=== PATIENT | female | born 1980 | race Caucasian/White ===

== ENCOUNTER 2021-11-26 11:40 | Outpatient (CLI) | payer OTHER, SELFPAY ==
[2021-11-26 20:37] LABS: Chlamydia DNA Amplified* NOT DETECTED (No Detected); GC DNA Amplified* NOT DETECTED (No Detected)
[2021-11-26 21:47] LABS: Hepatitis C Virus Antibody* Negative (Negative)
[2021-11-27 15:11] LABS: HIV 1/2/P24 Combo Screen* Negative (Negative)
== END 2021-11-26 11:41 | disposition home or self-care (01) ==
PROVIDERS: PCP Family Medicine; Visit Provider Nurse Practitioner Family
DX: N89.8 Other specified noninflammatory disorders of vagina (principal); Z11.3 Encounter for screening for infections with a predominantly sexual mode of transmission; Z12.4 Encounter for screening for malignant neoplasm of cervix
CPT/HCPCS: 86703; 86803; 87491; 87591; 87624; 88175

== ENCOUNTER 2022-12-30 09:41 | Outpatient (CLI) | payer MEDICAID, SELFPAY | END 2022-12-30 09:42 | disposition home or self-care (01) | PROVIDERS: PCP Nurse Practitioner Family; Visit Provider Nurse Practitioner Family | DX: I10 Essential (primary) hypertension (principal); E66.9 Obesity, unspecified; Z13.6 Encounter for screening for cardiovascular disorders | CPT/HCPCS: 80053; 80061; 84443 ==

== ENCOUNTER 2023-05-17 08:51 | Outpatient (CLI) | payer MEDICAID, SELFPAY ==
--- OUTSIDE RECORDS SUMMARY | 2023-05-17 09:00 | XMS_ITS | Encounter Summary ---
Author Name Unknown Organization [place] Address [address] [facility] [place] [address] Care Team Providers Care Consumer Loan Officer Name Role Phone Priscilla Bentley MD Primary Care Provider [phone] Ref-Primary, Physician Primary Care Provider Annamarie Starks PA-C Unavailable Annamarie Starks PA-C Unavailable Priscilla Bentley MD Unavailable Reason for Visit * Reason Onset Date Comments Depression 07/08/2009 phq9 done Encounter Details Date Type Department Care Team (Late st Contact Info) Description 07/08/2009 MyC Medical Advice [address] [phone] Alejandra Bains Depression (phq9 done) Social History Tobacco Use Types Packs/Day Years Used Date Smoking Tobacco: Never Alcohol Use Standard Drinks/Week Comments Yes 0 (1 standard drink = 0.6 oz pur e alcohol) very little Sex and Gender Information Value Date Recorded Sex Assigned at Not on file Gender Identity Not on file Sexual Orientation Not on file documented as of this encounter Miscellaneous Notes * Telephone Encounter - NevilleOlivera Ray - 07/08/2009 8:57 PM CDT Call to patient : [phone] (home) Line busy. Need to explore her phq9 answer to #9 (hurting self or suicidal). Refer to Lightbox message. PHQ-9 (scale: 0 to 3) 07/08/2009 No Interest in doing things 1 Feeling depressed 1 Trouble sleeping 3 Tired / No energy 2 No appetite or over-eating 3 Feeling bad about self 1 Trouble concentrating 1 Moving slow or restless 0 Suicidal thoughts 1 TOTAL SCORE------> 13 Jamila LozadaRN documented in this encounter Plan of Treatment Not on file documented as of this encounter Visit Diagnoses Diagnosis ANXIETY STATE NOS- Primary Anxiety state, unspecified documented in this encounter Care Teams Consumer Loan Officer Relationship Specialty Start Date End Date Priscilla Bentley MD [facility] [place] [address] PCP - General 04/01/03 01/18/18 No Ref-Primary, Physician PCP - General 01/19/18 Annamarie Starks PA-C [address] [place] [phone] PCP - Assigned PCP 12/25/17 06/27/18 Annamarie Starks PA-C [address] [place] [address] [phone] Assigned PCP 12/25/17 08/19/18 Priscilla Bentley MD [address] [place] [address] Assigned PCP 04/23/18 12/22/19 documented as of this encounter
--- OUTSIDE RECORDS SUMMARY | 2023-05-17 09:00 | XMS_ITS | Encounter Summary ---
Author Name Unknown Organization [place] Address [address] [facility] [place] [address] Care Team Providers Care Radioisotope Technologist Name Role Phone Priscilla Bentley MD Primary Care Provider [phone] No Ref-Primary, Physician Primary Care Provider Annamarie Starks PA-C Unavailable Annamarie Starks PA-C Unavailable Priscilla Bentley MD Unavailable Encounter Details Date Type Department Care Team (Late st Contact Info) Description 03/29/[address] [phone] Jose Michel MD [address] [place] [id number] DELIVERY RECORDS Social History Tobacco Use Types Packs/Day Years Used Date Smoking Tobacco: Never Smokeless Tobacco: Never Alcohol Use Standard Drinks/Week Comments No 0 (1 standard drink = 0.6 oz pur e alcohol) Comments Yes Sex and Gender Information Value Date Recorded Sex Assigned at Not on file Gender Identity Not on file Sexual Orientation Not on file documented as of this encounter Plan of Treatment Not on file documented as of this encounter Visit Diagnoses Not on filedocumented in this encounter Care Teams Radioisotope Technologist Relationship Specialty Start Date End Date Priscilla Bentley [place] [address] PCP - General 04/01/03 01/18/18 No Ref-Primary, Physician PCP - General 01/19/18 Annamarie Starks PA-C [address] [place] [address] [phone] PCP - Assigned PCP 12/25/17 06/27/18 Annamarie Starks PA-C [address] [place] [address] [phone] Assigned PCP 12/25/17 08/19/18 Priscilla Bentley MD [facility] [place] [id number] Assigned PCP 04/23/18 12/22/19 documented as of this encounter
--- OUTSIDE RECORDS SUMMARY | 2023-05-17 09:00 | XMS_ITS | Referral Summary ---
Author Name Unknown Organization [place] Address [facility] [place] [address] Care Team Providers Care Supervisor Boiler Repair Name Role Phone No Ref-Primary, Physician Primary Care Provider Allergies Active Allergy Reactions Criticality Noted Date Comments Bactrim 10/12/2007 See 10/12/07 notes Hydrocodone Rash 05/11/2004 pruritus Morphine And Related Nausea and Vomiting 2008 Heart palpitations Penicillins 03/13/2003 Medications Medication Sig Dispensed Refills Start Date End Date Status Loratadine (CLARITIN PO) 0 Active sertraline (ZOLOFT) 100 MG tabletIndications:An xiety state TAKE 2 TABLETS BY MOUTH EVERY DAY 180 tablet 3 12/18/2016 Active cyclobenzaprine (FLEXERIL) 10 MG tabletIndications:Ac jing bilateral low back pain with left-sided sciatica Take 1 tablet (10 mg) by mouth 3 times daily as needed for muscle spasms 30 tablet 1 12/18/2016 Active fluticasone (FLONASE) 50 MCG/ACT sprayIndications:Arsh al sinus congestion [place] 1-2 sprays into both nostrils daily 1 Bottle 0 04/03/2017 Active Active Problems Problem Noted Date Diagnosed Date CARDIOVASCULAR SCREENING; LDL GOAL LESS THAN 160 02/22/2010 Anxiety state 06/13/2006 Overview: Problem list name updated by automated process. Provider to review Insomnia 07/09/2005 Overview: Problem list name updated by automated process. Provider to review Morbid obesity 05/14/2005 Esophageal reflux 10/01/2003 Resolved Problems Problem Noted Date Diagnosed Date Resolved Date iamSPRAIN LUMBAR REGION 10/13/200606/24 Depressive disorder, not elsewhere classified 07/10/1908/29/2009 Encounter for supervision of other normal 08/24/2004 05/14/2005 Overview: Diagnosis updated by automated process. Provider to review and confirm. Immunizations Name Administration Dates Next Due Influenza (H1N1) 05/08/2009 Influenza (IIV3) PF 04/20/2013, 2,02/06/2010, 008,02/16/2007,04/07/2006 Influenza Vaccine >6 months,quad, PF 04/17/2015 TD,PF 7+ (Tenivac) 06/12/2003 TDAP Vaccine (Boostrix) 03/17/2012 Social History Tobacco Use Types Packs/Day Years Used Date Smoking Tobacco: Never Smokeless Tobacco: Never Alcohol Use Standard Drinks/Week Comments No 0 (1 standard drink = 0.6 oz pur e alcohol) PHQ-2 Answer Date Recorded PHQ-2 Score 5 05/03/2018 Sex and Gender Information Value Date Recorded Sex Assigned at Not on file Gender Identity Not on file Sexual Orientation Not on file Last Filed Vital Signs Vital Sign Reading Time Taken Comments Blood Pressure 134/80 04/03/2017 10:45 AM PRODUCT FINISHER Pulse 96 04/03/2017 10:45 AM PRODUCT FINISHER Temperature 36.7 ??C (98 ??F) 04/03/2017 10:45 AM PRODUCT FINISHER Respiratory Rate 18 04/03/2017 10:45 AM PRODUCT FINISHER Oxygen Saturation 97% 04/03/2017 10:45 AM PRODUCT FINISHER Inhaled Oxygen Concentration - - Weight 152 kg (335 lb 3.2 oz) 04/03/2017 10:45 A M PRODUCT FINISHER Height 160 cm (5' 3) 12/18/2016 8:08 AM CDT Body Mass Index 59.38 12/18/2016 8:08 AM CDT Plan of Treatment Not on file Care Teams Supervisor Boiler Repair Relationship Specialty Start Date End Date No Ref-Primary, Physician PCP - General 01/19/18
--- OUTSIDE RECORDS SUMMARY | 2023-05-17 09:00 | XMS_ITS | Encounter Summary ---
Author Name Unknown Organization [place] Address [address] [facility] [place] [address] Care Team Providers Care Retail Service Technician Name Role Phone Priscilla Bentley MD Primary Care Provider [phone] No Ref-Primary, Physician Primary Care Provider Annamarie Starks PA-C Unavailable Annamarie Starks PA-C Unavailable Priscilla Bentley MD Unavailable Encounter Details Date Type Department Care Team (Late st Contact Info) Description 03/27/[address] [phone] Jose Michel MD [address] [place] [id number] INDUCTION ORDERS Social History Tobacco Use Types Packs/Day Years [...] on filedocumented in this encounter Care Teams Retail Service Technician Relationship Specialty Start Date End Date Priscilla Bentley MD [place] [address] PCP - General 04/01/03 01/18/18 No Ref-Primary, Physician PCP - General 01/19/18 Annamarie Starks PA-C [address] [place] [address] [phone] PCP - Assigned PCP 12/25/17 06/27/18 Annamarie Starks PA-C [address] [place] [address] [phone] Assigned PCP 12/25/17 08/19/18 Priscilla Bentley MD [facility] [place] [place] [address] Assigned PCP 04/23/18 12/22/19 documented as of this encounter
--- OUTSIDE RECORDS SUMMARY | 2023-05-17 09:00 | XMS_ITS | Encounter Summary ---
Author Name Unknown Organization [place] Address [address] [place] [address] Care Team Providers Care Product Development Coordinator Name Role Phone Priscilla Bentley MD Primary Care Provider [phone] No Ref-Primary, Physician Primary Care Provider Annamarie Starks PA-C Unavailable Annamarie Starks PA-C Unavailable Priscilla Bentley MD Unavailable Reason for Visit * Reason Onset Date Comments MyChart Communication 06/30/2011 UTI Encounter Details Date Type Department Care Team (Late st Contact Info) Description 06/30/2011 MyC Medical Advice [address] [phone] Priscilla [place] [address] MyChart Communication (UTI) Social History Tobacco Use Types Packs/Day Years Used Date Smoking Tobacco: Never Smokeless Tobacco: Never Alcohol Use Standard Drinks/Week Comments No 0 (1 standard drink = 0.6 oz pur e alcohol) Sex and Gender Information Value Date Recorded Sex Assigned at Not on file Gender Identity Not on file Sexual Orientation Not on file documented as of this encounter Plan of Treatment Not on file documented as of this encounter Visit Diagnoses Not on filedocumented in this encounter Care Teams Product Development Coordinator Relationship Specialty Start Date End Date Priscilla Bentley MD [facility] [place] [id number] PCP - General 04/01/03 01/18/18 No Ref-Primary, Physician PCP - General 01/19/18 Annamarie Starks PA-C [address] [place] [address] [phone] PCP - Assigned PCP 12/25/17 06/27/18 Annamarie Starks PA-C [address] [place] [address] [phone] Assigned PCP 12/25/17 08/19/18 Priscilla Bent[place] [address] Assigned PCP 04/23/18 12/22/19 documented as of this encounter
--- OUTSIDE RECORDS SUMMARY | 2023-05-17 09:00 | XMS_ITS | Clinical Summary ---
Author Name Unknown Organization [place] Address [facility]0 [facility] [place] [address] Care Team Providers Care Subcontract Manager Name Role Phone No Ref-Primary, Physician Primary [...] (FLONASE) 50 MCG/ACT sprayIndications:Arsh al sinus congestion [place] 1-2 sprays into both nostrils daily 1 [...] REGION 10/13/200606/24 Depressive disorder, not elsewhere classified 07/10/19 06 08/29/2009 Encounter for supervision of other normal 08/24/2004 05/14/2005 Overview: Diagnosis updated by automated process. Provider to review and confirm. Immunizations Name Administration Dates Next Due Influenza (H1N1) 05/08/2009 Influenza (IIV3) PF 04/20/2013, 2,02/06/2010, 008,02/16/2007,04/07/2006 Influenza Vaccine >6 months,quad, PF 04/17/2015 TD,PF 7+ (Tenivac) 06/12/2003 TDAP Vaccine (Boostrix) 03/17/2012 Family History Medical History Relation Comments Hypertension Father Lipids Father Obesity Father Breast Cancer Maternal Aunt grandmother's si ster C.A.D. Maternal Grandfather Cancer Maternal Grandfather skin cancer Hypertension Maternal Grandfather C.A.D. Maternal Grandmother Diabetes Maternal Grandmother type 2 Genitourinary Problems Maternal Grandmother live r disease Hypertension Maternal Grandmother Alcohol/Drug Paternal Grandfather Cancer Paternal Grandfather age mi d 70's of throat cancer; smoked and drank Cerebrovascular Disease Paternal Grandfather C.A.D. Paternal Grandmother several CO' s Diabetes Paternal Grandmother C.A.D. Paternal Uncle age 49/Grandfath er's brother of massive CO young Prostate Cancer Paternal Uncle Grandfather's br other Relation Status Comments Father Alive Maternal Aunt Maternal Grandfather Alive Maternal Grandmother Alive Mother Alive Paternal Grandfather Paternal Grandmother Alive Paternal Uncle Social History Tobacco Use Types Packs/Day Years [...] Comments Blood Pressure 134/80 04/03/2017 10:45 AM TAP BUILDER Pulse 96 04/03/2017 10:45 AM TAP BUILDER Temperature 36.7 ??C (98 ??F) 04/03/2017 10:45 AM TAP BUILDER Respiratory Rate 18 04/03/2017 10:45 AM TAP BUILDER Oxygen Saturation 97% 04/03/2017 10:45 AM TAP BUILDER Inhaled Oxygen Concentration - - Weight 152 kg (335 lb 3.2 oz) 04/03/2017 10:45 A M TAP BUILDER Height 160 cm (5' 3) 12/18/2016 8:08 AM CDT Body Mass Index 59.38 12/18/2016 8:08 AM CDT Plan of Treatment Not on file Care Teams Subcontract Manager Relationship Specialty Start Date End Date No Ref-Primary, Physician PCP - General 01/19/18
--- NOTE | 2023-05-17 09:15 | CRLHL7_ITS ---
For Patients: As a result of the Century Cures Act, medical imaging exams and procedure reports are released immediately into your electronic medical record. You may view this report before your referring provider. If you have questions, please contact your health care provider. BILATERAL SCREENING MAMMOGRAM WITH COMPUTER-AIDED DETECTION AND TOMOSYNTHESIS TECHNIQUE: CC and MLO views were obtained. These mammographic images have been obtained using full-field digital technique. These mammographic images were interpreted with the benefit of computer-aided detection. Breast Tomosynthesis was used in this interpretation. COMPARISON FILM: Baseline. FINDINGS: There are scattered areas of fibroglandular density IMPRESSION: There is no radiographic evidence for malignancy. ASSESSMENT: BI-RADS Category 1: Negative RECOMMENDATION: Routine screening mammogram in 1 year. A lay language report of this examination will be provided to the patient. Rojas Davila M.D. Diagnostic Radiologist [email or web address] JOE/jan / be/Dictated by: Rojas Davila MD @ 05/17/2023 11:02:00 AM (Electronically Signed)
== END 2023-05-17 08:52 | disposition home or self-care (01) ==
LOC: MAMMO 08:53
PROVIDERS: PCP Nurse Practitioner Family; Visit Provider Nurse Practitioner Family
DX: Z12.31 Encounter for screening mammogram for malignant neoplasm of breast (principal)
CPT/HCPCS: 77063; 77067

== ENCOUNTER 2024-04-19 09:57 | Outpatient (CLI) | payer MEDICAID, SELFPAY ==
[2024-04-19 14:12] LABS: HIV 1/2/P24 Combo Screen* Negative (Negative)
[2024-04-19 15:16] LABS: Chlamydia DNA Amplified* NOT DETECTED (No Detected); GC DNA Amplified* NOT DETECTED (No Detected)
== END 2024-04-19 09:58 | disposition home or self-care (01) ==
PROVIDERS: PCP Nurse Practitioner Family; Visit Provider Emergency Medicine
DX: N76.0 Acute vaginitis (principal); Z11.3 Encounter for screening for infections with a predominantly sexual mode of transmission; Z11.59 Encounter for screening for other viral diseases; Z11.51 Encounter for screening for human papillomavirus (HPV); B37.31 Acute candidiasis of vulva and vagina; Z11.4 Encounter for screening for human immunodeficiency virus [HIV]
CPT/HCPCS: 86592; 86703; 86803; 87340; 87491; 87591

== ENCOUNTER 2024-04-26 13:21 | Outpatient (CLI) | payer MEDICAID, SELFPAY | END 2024-04-26 13:22 | disposition home or self-care (01) | LOC: FRMREF 13:23 | PROVIDERS: PCP Nurse Practitioner Family; Visit Provider Nurse Practitioner Family | DX: Z00.00 Encounter for general adult medical examination without abnormal findings (principal); I10 Essential (primary) hypertension; Z13.6 Encounter for screening for cardiovascular disorders; E66.813 Obesity, class 3; Z68.44 Body mass index [BMI] 60.0-69.9, adult | CPT/HCPCS: 80053; 80061 ==

== ENCOUNTER 2024-11-13 13:22 | Outpatient (CLI) | payer MEDICAID, SELFPAY ==
--- NOTE | 2024-11-13 13:40 | CRLHL7_ITS ---
For Patients: As a result of the Cures Act, medical imaging exams and procedure reports are released immediately into your electronic medical record. You may view this report before your referring provider. If you have questions, please contact your health care provider. INDICATION: BILATERAL SCREENING MAMMOGRAM, ASYMPTOMATIC 44 Y/O FEMALE COMPARISON: 05/17/2023 TECHNIQUE: Digital mammogram in CC and MLO projections including computer-aided detection (CAD) and tomosynthesis. BREAST COMPOSITION: There are scattered areas of fibroglandular density. FINDINGS: No suspicious findings. ASSESSMENT: BI-RADS 1 Negative RECOMMENDATION: Annual screening mammogram. A lay language report of this examination will be provided to the patient. Dictated by: Belinda Mohan MD @ 11/15/2024 11:10:05 (Electronically Signed)
== END 2024-11-13 13:23 | disposition home or self-care (01) ==
LOC: MAMMO 13:23
PROVIDERS: PCP Nurse Practitioner Family; Visit Provider Nurse Practitioner Family
DX: Z12.31 Encounter for screening mammogram for malignant neoplasm of breast (principal)
CPT/HCPCS: 77063; 77067

== ENCOUNTER 2024-11-13 14:17 | Outpatient (CLI) | payer MEDICAID, SELFPAY | END 2024-11-13 14:18 | disposition home or self-care (01) | PROVIDERS: PCP Nurse Practitioner Family; Visit Provider Physician Assistant | DX: N92.6 Irregular menstruation, unspecified (principal) | CPT/HCPCS: 84146; 84443 ==

== ENCOUNTER 2024-11-14 06:55 | Outpatient (CLI) | payer MEDICAID, SELFPAY ==
--- NOTE | 2024-11-14 07:15 | CRLHL7_ITS ---
For Patients: As a result of the Century Cures Act, medical imaging exams and procedure reports are released immediately into your electronic medical record. You may view this report before your referring provider. If you have questions, please contact your health care provider. CLINICAL HISTORY: Irregular menstruation TECHNIQUE: Real time, graves scale images were acquired of the pelvis using a transabdominal and transvaginal approach. Color Doppler analysis was performed of the ovaries. FINDINGS: The uterus measures 10.6 x 5.4 x 6 centimeters the endometrium measures 1.3 centimeters. Suboptimal visualization of the pelvis with shadowing. Right ovarian multi septated cystic mass measuring 10.8 x 7.1 x 13.4 centimeters the left ovary also is poorly seen there is a 3.7 centimeter cyst in the left ovary minimal blood flow documented to the peripheral right ovary blood flow poorly documented in the left ovary. No free fluid. IMPRESSION: 1. Suboptimal visualization of the pelvis with shadowing. Right multi-septated cystic mass measuring 10.8 x 7.1 by 13.4 centimeters. Multiple septations a 6 millimeter septation is documented solid component not clearly seen. This may represent benign versus malignant process. Gynecology consultation is recommended. 2. Suboptimal visualization of the left ovary with a 3.7 centimeter simple appearing cyst. Dictated by Nena Dominguez MD @ 11/16/2024 1:14:55 PM (Electronically Signed)
== END 2024-11-14 06:56 | disposition home or self-care (01) ==
PROVIDERS: PCP Nurse Practitioner Family; Visit Provider Physician Assistant
DX: N92.6 Irregular menstruation, unspecified (principal); N83.202 Unspecified ovarian cyst, left side
CPT/HCPCS: 76830; 76856

== ENCOUNTER 2024-11-20 14:15 | Outpatient (CLI) | payer MEDICAID, SELFPAY | END 2024-11-20 14:16 | disposition home or self-care (01) | LOC: NFLDREF 11-22 15:41 | PROVIDERS: PCP Nurse Practitioner Family; Referring Provider Nurse Practitioner Family; Visit Provider Physician Assistant | DX: N83.201 Unspecified ovarian cyst, right side (principal) | CPT/HCPCS: 82378; 86301; 86304 ==